=== PATIENT | male | born 1975 | race Caucasian/White ===

== ENCOUNTER 2020-08-22 10:54 | Outpatient (CLI) | payer BC, SELFPAY ==
--- NOTE | ~2020-08-22 | XR_ITS ---
XR chest 2V DATE: 08/22/2020 11:12 INDICATION: Left pleuritic chest pain TECHNIQUE: PA and lateral views COMPARISON: 12/07/2018 portable AP chest FINDINGS: Normal heart size. No hilar or mediastinal enlargement. No pulmonary infiltrate or consol idation, pulmonary vascular congestion, pleural effusion or pneumothorax. Mild scoliosis and degener ative spurring of the thoracic spine. IMPRESSION: No active cardiopulmonary disease Reviewed, dictated and finalized at location A. TURNER
== END 2020-08-22 10:55 | disposition home or self-care (01) ==
LOC: CHSIMG 11:00
PROVIDERS: PCP Family Medicine; Visit Provider Family Medicine
DX: R07.81 Pleurodynia (principal)
CPT/HCPCS: 71046

== ENCOUNTER 2020-10-11 10:43 | Outpatient (CLI) | payer BC, SELFPAY ==
[2020-10-11 11:08] LABS: D Dimer 0.19 mg/L (0.19-0.50)
== END 2020-10-11 10:44 | disposition home or self-care (01) ==
LOC: CHSLAB 10:45
PROVIDERS: PCP Physician Assistant; Visit Provider Physician Assistant
DX: R07.81 Pleurodynia (principal)
CPT/HCPCS: 36415; 85380

== ENCOUNTER 2020-10-22 10:09 | Outpatient (CLI) | payer BC, SELFPAY ==
--- NOTE | 2020-10-22 10:14 | ECHO_ITS ---
Patient Info Name: Osei Almazan Age: 45 years : 1975 Gender: Male Ht: 72 in Wt: 208 lbs BSA: 2.21 m2 HR: 56 bpm BP: 145 / 85 mmHg Technical Quality: Excellent Exam Date: 10/22/2020 10:04 AM Exam Location: [facility] Patient Status: Outpatient Admit Date: 10/22/2020 Staff Ordering Physician: VipulJamar MD Contour Stitcher: Laurel Sales RDCS Attending Provider: VipulJamar MD Exam Type: CA echo doppler color flow Study Info Indications R07.81 - Pleurodynia Complete two-dimensional, color flow and Doppler transthoracic echocardiogram is performed. Strain analysis performed. History/Risk Factors Hypertension: No Dyslipidemia: No Congenital Heart Disease (CHD): No Peripheral Arterial Disease (PAD): No Myocardial Infarction (ID): No Chronic Lung Disease: No Obesity: No Renal Disease: No Coronary Artery Disease (CAD) No Congestive Heart Failure (CHF): No Cardiomyopathy/LV Systolic Dysfunction: No Diabetes Mellitus: No COPD: No Tobacco Use: Never Cerebrovascular Disease: No Family History: Diabetes Mellitus, Coronary Artery Disease Deep Vein Thrombosis (DVT): None Dialysis: None Frailty Scale (CSHA): 1: Very Fit Cardiac Arrest: No Summary 1. Complete two-dimensional, color flow and Doppler transthoracic echocardiogram is performed. 2. Left ventricular chamber dimension is moderately enlarged. 3. Left ventricular systolic function is normal, estimated at 60-65%. 4. The left ventricular diastolic function is normal. 5. E/e' 7 is not elevated. 6. Global longitudinal strain is normal at -17.4%. 7. Left atrial chamber dimension is mildly enlarged. 8. There is mild mitral valve regurgitation. 9. There is trace tricuspid valve regurgitation. 10. No pulmonary hypertension, estimated pulmonary arterial systolic pressure is 30 mmHg. 11. There is trace pulmonic regurgitation. Left Ventricle E/e' 7 is not elevated. Global longitudinal strain is normal at -17.4%. Left ventricular chamber dimension is moderately enlarged. Left ventricular systolic function is normal, estimated at 60-65%. The left ventricular diastolic function is normal. Right Ventricle Right ventricular systolic function is normal with normal TAPSE 1.8 cm. Right ventricular chamber dimension is normal. Left Atria Left atrial chamber dimension is mildly enlarged. Right Atria Right atrial chamber dimension is normal. Aortic Valve The aortic valve is trileaflet. There is no aortic valve stenosis. There is no aortic valve regurgitation. Pulmonic Valve There is trace pulmonic regurgitation. Mitral Valve There is no mitral valve stenosis. There is mild mitral valve regurgitation. Tricuspid Valve There is trace tricuspid valve regurgitation. No pulmonary hypertension, estimated pulmonary arterial systolic pressure is 30 mmHg. Pericardium/Pleural There is no pericardial effusion. Inferior Vena Cava Normal inferior vena cava with >50% collapse upon inspiration consistent with normal right atrial pressure, 5 mmHg. Aorta The aortic root size at the sinus of Valsalva is normal. Left Ventricular Outflow Tract Name Value Normal LVOT 2D
== END 2020-10-22 10:10 | disposition home or self-care (01) ==
LOC: CHSIMG 10:10
PROVIDERS: PCP Physician Assistant; Visit Provider Family Medicine
DX: R07.81 Pleurodynia (principal)
CPT/HCPCS: 93306

== ENCOUNTER 2020-11-18 07:29 | Outpatient (CLI) | payer BC, SELFPAY ==
--- NOTE | 2020-11-18 09:00 | EST_ITS ---
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 History/Risk Factors Hypertension: No Dyslipidemia: No Congenital Heart Disease (CHD): No Peripheral Arterial Disease (PAD): No Myocardial Infarction (PR): No Chronic Lung Disease: No Obesity: No Renal Disease: No Coronary Artery Disease (CAD) No Congestive Heart Failure (CHF): No Cardiomyopathy/LV Systolic Dysfunction: No Diabetes Mellitus: No COPD: No Tobacco Use: Never Cerebrovascular Disease: No Family History: Diabetes Mellitus, Coronary Artery Disease Deep Vein Thrombosis (DVT): None Dialysis: None History/Risk Factors Family History. Frailty Scale (CSHA): 1: Very Fit Cardiac Arrest: No Summary 1. 1. Abnormal Jamar exercise stress test for ischemic ST changes by ECG criteria. 2. 2. Good functional capacity, achieving 14.9 METs of workload. 3. 3. Appropriate HR response to exercise. 4. 4. Appropriate HR recovery at 1 minute post exercise. 5. 5. Nuclear scan to follow and will be reported separately. Please correlate with it. Protocol: Jamar Stress ECG Details Stage: REST Duration (min): 1 min : 23 sec Speed (mph): 0.0 Grade (%): 0 HR (bpm): 55 SBP (mmHg): 133 DBP (mmHg): 83 METS: --- Stage: REST Duration (min): 22 min : 9 sec Speed (mph): 0.0 Grade (%): 0 HR (bpm): 66 SBP (mmHg): 133 DBP (mmHg): 83 METS: --- Stage: STAGE 1 Duration (min): 1 min : 0 sec Speed (mph): 1.7 Grade (%): 10 HR (bpm): 83 SBP (mmHg): 133 DBP (mmHg): 83 METS: --- Stage: STAGE 1 Duration (min): 2 min : 0 sec Speed (mph): 1.7 Grade (%): 10 HR (bpm): 88 SBP (mmHg): 133 DBP (mmHg): 83 METS: --- Stage: STAGE 1 Duration (min): 3 min : 0 sec Speed (mph): 1.7 Grade (%): 10 HR (bpm): 87 SBP (mmHg): 150 DBP (mmHg): 92 METS: --- Stage: STAGE 2 Duration (min): 1 min : 0 sec Speed (mph): 2.5 Grade (%): 12 HR (bpm): 108 SBP (mmHg): 150 DBP (mmHg): 92 METS: --- Stage: STAGE 2 Duration (min): 2 min : 0 sec Speed (mph): 2.5 Grade (%): 12 HR (bpm): 114 SBP (mmHg): 150 DBP (mmHg): 92 METS: --- Stage: STAGE 2 Duration (min): 3 min : 0 sec Speed (mph): 2.5 Grade (%): 12 HR (bpm): 115 SBP (mmHg): 182 DBP (mmHg): 106 METS: --- Stage: STAGE 3 Duration (min): 1 min : 0 sec Speed (mph):
--- NOTE | 2020-11-18 16:44 | WPDCARIOSTRE ---
Nuclear Stress Test INDICATIONS Indications: Chest pain PROCEDURE Procedure Performed: Myocardial Perf Spect-Multi Procedure: Patient underwent a Jamar exercise stress test and at peak exercise was injected with 33.1 mCi of cardiolyte. Multiple tomographic images were obtained. These were of adequate quality. There is evidence of a small size, mild inferior perfusion defect during stress imaging. A separate resting images were performed after patient was injected with 10.7 mCi of cardiolyte. Multiple tomographic images were obtained. These were of adequate quality. There is evidence of a large size, severe inferior perfusion defect during rest imaging. CONCLUSION Conclusion: 1. Myocardial perfusion imaging demonstrating a fix defect in the inferior wall that was worse with rest imaging suggestive of diaphragmatic attenuation artifact. 2. No evidence of reversible ischemia. 3. Left ventriculogram demonstrates EF of 53%. No wall motion abnormalities. 4. TID score is not elevated at 0.79.
== END 2020-11-18 07:30 | disposition home or self-care (01) ==
PROVIDERS: PCP Family Medicine
DX: R07.9 Chest pain, unspecified (principal); R93.1 Abnormal findings on diagnostic imaging of heart and coronary circulation
CPT/HCPCS: 78452; 93017; A9502

== ENCOUNTER 2022-12-09 07:11 | Day surgery (SDC) | payer BC, SELFPAY ==
[2022-10-22 12:49] VITALS: BMI 29.0
--- NOTE | 2022-12-10 07:29 | SUR.PREOP ---
Paper chart exist on patient due to [facility] downtime.
== END 2022-12-09 07:30 | disposition home or self-care (01) ==
LOC: ANHENDO 01-01 14:11
PROVIDERS: PCP Family Medicine; Visit Provider Internal Medicine Gastroenterology
DX: Z12.11 Encounter for screening for malignant neoplasm of colon (principal); Z53.8 Procedure and treatment not carried out for other reasons
CPT/HCPCS: 99199; J7120

== ENCOUNTER 2022-12-23 01:38 | Day surgery (SDC) | payer BC, OTHER, SELFPAY ==
[2022-12-17 10:24] VITALS: BMI 28.8
--- NOTE | 2022-12-17 11:31 | PC.NURSE ---
CALLED ASHLEY IN DR. VASQUEZ OFFICE AND INFORMED HER PATIENT HAD A POSITIVE COLOGUARD IN 2022
[2022-12-23 06:47] VITALS: BP 124/90; PULSE 84; RESP 18; TEMP 36.1; O2SAT 98
[2022-12-23] MEDS: LACTATED RINGERS 1,000 ML 150 ML IV CONT (06:57)
--- NOTE | 2022-12-23 07:18 | WPDANESEPPF ---
Anes - Initial Pre Proc Eval Procedure: Operation Date: 12/23/22 08:00 Proposed Procedures p Colonoscopy - Boy Shell MD Date/Time: 12/23/22 07:18 Surgeon: Boy Shell MD Pre Op Diagnosis: other fecal abnormalities Patient Data Age: 47 Gender: M Height: 1.83 m Weight: 95.6 kg Last Vital Signs Temp 97 F L 12/23/22 06:47 Pulse 84 12/23/22 06:47 Resp 18 12/23/22 06:47 BP 124/90 12/23/22 06:47 Pulse Ox 98 12/23/22 06:47 O2 Del Method Room Air 12/23/22 06:47 Allergies Allergy/AdvReac Type Severity Reaction Status Date / Time No Known Allergies Allergy Verified 12/23/22 06:46 Home Medications Medication Instructions Recorded Confirmed Type Adults Multivitamin 1 tab-cap PO DAILY 10/22/22 11/30/22 History Patient hx anesthesia problems: none Family hx anesthesia problems: none Results Review: All pre-operative results and documents have been reviewed as part of the pre-operative evaluation. [facility] Past Medical History Medical History (Updated 09/17/22 @ 15:08 by Boy Shell MD) Genital warts Gout Hx of hyperlipidemia LFT elevation Positive colorectal cancer screening using Cologuard test Social History Social History Smoking status: Never smoker Alcohol intake: current Alcohol use details: on occasion Substance use: never Substance use type: does not use Living arrangements: with family Spiritual care concerns: No Anes - Eval Final PreProcedure Day of Procedure 12/23/22 07:18 Patient weight: normal Heart: regular rate and rhythm Lungs: clear to auscultation Airway: Mallampati scale class II Neurological: alert and oriented Last oral intake: >/= 8 hours ASA classification: II Emergent: no Anesthetic plan: proceed Anesthesia type and monitoring: general GIVS and standard monitoring Results Review: All pre-operative results and documents have been reviewed as part of the pre-operative evaluation. Informed Consent: The patient's anesthetic plan and its attendant risks and benefits were discussed with the patient/family/POA. Questions were solicited and answers provided to the satisfaction of the patient/family/POA.
--- NOTE | 2022-12-23 08:07 | PM.HPGS ---
History of Present Illness History of Present Illness Consent: Risks, benefits, and alternatives have been discussed and questions answered. Patient agrees to proceed with procedure. Chief complaint: other fecal abnormalities Narrative: Osei Almazan is a 47 year old male with cologuard +, never had colonoscopy Review of Systems Constitutional: Constitutional: Denies headache(s) and Denies weakness Eyes: Eyes: Denies blurry vision ENT: Reports Normal hearing present, Denies headache(s) and Denies neck pain Cardiovascular: Cardiovascular: Denies chest pain and Denies dyspnea Respiratory: Respiratory: Denies dyspnea Gastrointestinal: Gastrointestinal: Reports no additional gastrointestinal complaints Genitourinary: Genitourinary: Denies dysuria Musculoskeletal: Musculoskeletal: Denies neck pain Integumentary/Breasts: Skin/Breast: Denies dry skin Neurologic: Reports Normal hearing present, Denies headache(s) and Denies weakness Psychiatric: Psychiatric: Denies anxiety Endocrine: Endocrine: Denies change in body appearance Hematologic/Lymphatic: Hematologic/Lymphatic: Denies easy bleeding Allergic/Immunologic: Allergic/Immunologic: Denies urticaria PMFSH Past Medical History Medical History (Updated 09/17/22 @ 15:08 by Boy Shell MD) Genital warts Gout Hx of hyperlipidemia LFT elevation Positive colorectal cancer screening using Cologuard test Social History Social History Smoking status: Never smoker Alcohol intake: current Alcohol use details: on occasion Substance use: never Substance use type: does not use Living arrangements: with family Spiritual care concerns: No Meds Home Medications and Allergies Home Medications Medication Instructions Recorded Confirmed Type Adults Multivitamin 1 tab-cap PO DAILY 10/22/22 11/30/22 History Allergies Allergy/AdvReac Type Severity Reaction Status Date / Time No Known Allergies Allergy Verified 12/23/22 06:46 Vital Signs Vital Signs - 24 hr 12/23/22 06:47 Temperature 97 F L Pulse Rate 84 Respiratory Rate 18 Blood Pressure 124/90 Pulse Oximetry 98 Oxygen Delivery Room Air Exam Const: General: comfortable and no acute distress HENMT: Face/Nose/Sinus: Normal nares present Eyes: General: appearance normal, both eyes and all related structures Neck: Neck: no JVD Resp: Auscultation: clear to auscultation bilaterally Cardio: Rate: regular rate Rhythm: regular rhythm GI: Inspection: non-distended GI Palp: Yes Soft to palpation Skin: General skin exam: normal color Neuro: General: gait normal Speech: normal speech Extrem: General: normal to inspection Psych: Mental Status: mental status grossly normal Assessment and Plan Assessment and plan (1) Positive colorectal cancer screening using Cologuard test: Code(s): R19.5 - Other fecal abnormalities Status: Acute Assessment and Plan: colonoscopy
[2022-12-23 08:31] VITALS: BP 117/81; PULSE 71; RESP 16; O2SAT 98
[2022-12-23 08:41] VITALS: BP 118/78; PULSE 60; RESP 15; O2SAT 98
[2022-12-23 08:51] VITALS: BP 122/84; PULSE 69; RESP 16; O2SAT 100
== END 2022-12-23 09:00 | disposition home or self-care (01) ==
PROVIDERS: PCP Family Medicine; Visit Provider Internal Medicine Gastroenterology
PROC: 0DJD8ZZ Inspection of Lower Intestinal Tract, Via Natural or Artificial Opening Endoscopic (ICD-10-PCS; CPT 45378; principal; 2022-12-23 08:00)
DX: R19.5 Other fecal abnormalities (principal); K64.8 Other hemorrhoids
CPT/HCPCS: 45378; J2704; J7120

== ENCOUNTER 2022-12-29 20:33 | Emergency (ER) | payer BC, OTHER, SELFPAY ==
[2022-12-29 20:35] VITALS: BP 157/91; PULSE 107; RESP 20; TEMP 36.8; O2SAT 96
[2022-12-29 20:37] VITALS: PULSE 96; RESP 22; O2SAT 96
[2022-12-29] MEDS: EPINEPHrine HCL INJ 1 MG/ML AMPUL 0.3 MG SUB-Q (20:43)
[2022-12-29 20:49] VITALS: BP 129/78; PULSE 81; RESP 20; O2SAT 94
--- NOTE | 2022-12-29 20:50 | ED.ALLEREA ---
HPI - Allergic Reaction General Chief complaint: Allergic Reaction Stated complaint: SOB/Allergic Reaction Source: patient and family Mode of arrival: ambulatory Limitations: no limitations History of Present Illness complaint: allergic reaction and facial swelling Onset (ago): minute(s) Exposure: cleaning product exposure Known history of allergy to: This is a 47-year-old male that presents with family that had allergic reaction after he used some sanitary wipes to his facial area causing him to have some chest tightness and a facial rash, currently no nausea vomiting does have some chest tightness with some some shortness of breath no audible wheezing, his O2 sats are 94%, no fever chills. Family did use extensive water to wipe away the the affects of the wet wipes. No abdominal pain no nausea vomiting no fever chills. Symptoms: facial swelling, difficulty swallowing and difficulty breathing Related Data Home Medications Medication Instructions Recorded Confirmed Adults Multivitamin 1 tab-cap PO DAILY 10/22/22 12/29/22 Allergies Allergy/AdvReac Type Severity Reaction Status Date / Time No Known Allergies Allergy Verified 12/29/22 20:38 Review of Systems Review of Systems: All systems reviewed & are unremarkable except as noted in HPI and below PMFSH Past Medical History Medical History Genital warts Gout Hx of hyperlipidemia LFT elevation Positive colorectal cancer screening using Cologuard test Social History Social History Smoking status: Never smoker Alcohol intake: current Alcohol use details: on occasion Substance use: never Substance use type: does not use Living arrangements: with family Spiritual care concerns: No Exam Const: General: healthy appearing Nutritional Appearance: well nourished Orientation/consciousness: patient oriented x3 Limitations: no limitations HENMT: Head: normal to inspection Eyes: Conjunctivae: conjunctivae normal EOM: EOMs intact bilaterally Neck: Neck: normal visual inspection Chest: Chest palpation & inspection: normal inspection of the chest Resp: Effort & Inspection: normal respiratory effort Auscultation: diminished lung sounds Cardio: Rate: regular rate Rhythm: regular rhythm GI: GI Palp: Yes Soft to palpation Auscultation: normal bowel sounds Skin: Wounds: wounds noted Neuro: General: patient oriented x3 Cranial nerves: Yes Nystagmus not present Extrem: General: normal to inspection Psych: Mental Status: mental status grossly normal Course Course Emergency Course: Patient received some 0 8 3% IM epinephrine and symptoms have improved markedly others lot less chest tightness, there is no nausea or vomiting no audible wheezing his lungs are clear after reassessment. O2 sats are improved as well up to 96 97% on room air and will give a dose of 80mg IM Depo-Medrol. At discharge will send to his pharmacy EpiPen and p.o. steroids. Vital Signs Vital signs: Vital Signs Temperature 36.8 C 12/29/22 20:35 Pulse Rate 107 H 12/29/22 20:35 Respiratory Rate 20 12/29/22 20:35 Blood Pressure 157/91 H 12/29/22 20:35 Pulse Oximetry 96 12/29/22 20:35 Oxygen Delivery Room Air 12/29/22 20:35 Temperature 36.8 C 12/29/22 20:35 Pulse Rate 81 12/29/22 20:49 Respiratory Rate 20 12/29/22 20:49 Blood Pressure 129/78 12/29/22 20:49 Pulse Oximetry 94 12/29/22 20:49 Oxygen Delivery Room Air 12/29/22 20:35 Critical Care Time Critical Care Time Critical Care Time: No Discharge Plan Discharge Clinical Impression: Allergic reaction Qualifiers: Encounter type: initial encounter Qualified Code(s): T78.40XA - Allergy, unspecified, initial encounter Patient Disposition: Home, Self-Care Condition: Stable Instructions: Antibiotic Form, General Allergic Reaction (ED) Additio
[2022-12-29] MEDS: methylPREDNISolone ACETATE 40 MG/ML VIAL 80 MG IM (21:01)
[2022-12-29 21:23] VITALS: BP 140/98; PULSE 74; RESP 18; O2SAT 96
== END 2022-12-29 21:24 | disposition home or self-care (01) ==
PROVIDERS: Emergency Provider Emergency Medicine; PCP Family Medicine
DX: T78.40XA Allergy, unspecified, initial encounter (principal); E78.5 Hyperlipidemia, unspecified
CPT/HCPCS: 96372; 99284; J0171; J1030

== ENCOUNTER 2023-02-11 12:40 | Outpatient (CLI) | payer BC, OTHER, SELFPAY ==
--- NOTE | ~2023-02-11 | MR_ITS ---
EXAMINATION: MR hand RT wo con DATE: 02/11/2023 13:31 INDICATION: Localized swelling, mass or lump at the right hand. TECHNIQUE: Magnetic resonance imaging (MRI) of the right hand was performed without intravenous contr ast. Portions of the wrist and proximal carpal row and distal tips of the second fourth distal phalan ges are excluded from the [id number]. Sequences included axial, sagittal and coronal T1-weighted F SE and T2-weighted FS FSE, axial T1-weighted FS FSE and axial fluid sensitive FSE STIR. COMPARISON: None FINDINGS: Bone alignment is normal with normal marrow signal throughout. No fracture or pathologic marrow repla cing process. Joint spaces are normal. No erosions or joint effusions. There is a 12 x 8 x 2 mm flat lenticular low signal intensity lesion located palmar to the neck of the fourth metacarpal which appe ars to arise from the palmar aponeurosis most consistent with a palmar fibroma. This immediately unde rlies the marker indicating the lesion of concern. No other nodules identified. The deeper flexor ten dons as well as extensor tendons of the hand appear normal with no tenosynovitis. The collateral liga ment complex at the metacarpophalangeal and interphalangeal joints are normal. IMPRESSION: 1. The lesion of concern corresponds to 4 x 8 x 2 mm lenticular region of focal thickening of the pal mar aponeurosis most consistent with a palmar fibroma. Reviewed, dictated and finalized at location A. IMPRESSION: 1. The lesion of concern corresponds to 4 x 8 x 2 mm lenticular region of focal thickening of the palmar aponeurosis most consistent with a palmar fibroma.
== END 2023-02-11 12:41 | disposition home or self-care (01) ==
PROVIDERS: PCP Family Medicine; Visit Provider Orthopaedic Surgery
DX: R22.31 Localized swelling, mass and lump, right upper limb (principal)
CPT/HCPCS: 73218

== ENCOUNTER 2023-07-14 12:22 | Outpatient (CLI) | payer BC, OTHER, SELFPAY ==
--- NOTE | ~2023-07-14 | CT_ITS ---
EXAMINATION: CT abdomen pelvis wo con DATE: 07/14/2023 12:49 INDICATION: Left kidney/flank pain for 2 weeks TECHNIQUE: Computed tomography (CT) of the abdomen and pelvis was performed without intravenous contr ast. Automated exposure control and iterative reconstruction technique were employed. Exam dose: 816 .12 mGy-cm total exam DLP. COMPARISON: 12/08/2018 abdominal ultrasound FINDINGS: The lung bases are clear of infiltrate or consolidation. Normal heart size. No pericardial or pleural effusion. The liver, gallbladder, bile ducts, spleen, pancreas, pancreatic duct, and adrenal glands and kidneys are unremarkable on this limited noncontrast examination. Bile duct or pancreatic duct dilatation. No urinary tract calculus or hydroureteronephrosis. Normal caliber of the abdominal aorta. No intraperitoneal or retroperitoneal or pelvic mass lesion or adenopathy or ascites. The urinary bladder and prostate gland are unremarkable. Small fat-containing left inguinal hernia. Normal appendix. There is a prominent amount of fecal material in the rectum and colon, particularly sigmoid colon. No bowel obstruction, bowel wall thickening, pneumatosis or intraperitoneal free air is detected. No suspicious osteolytic or osteoblastic lesions are noted. IMPRESSION: No urinary tract calculus or hydroureteronephrosis Reviewed, dictated and finalized at Location A. Reviewed, dictated and finalized at location B. 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
== END 2023-07-14 12:23 | disposition home or self-care (01) ==
LOC: CHSIMG 12:24
PROVIDERS: PCP Family Medicine; Visit Provider Family Medicine
DX: R10.9 Unspecified abdominal pain (principal)
CPT/HCPCS: 74176

== ENCOUNTER 2023-07-26 12:00 | Outpatient (CLI) | payer BC, OTHER, SELFPAY ==
--- NOTE | ~2023-07-26 | NM_ITS ---
EXAMINATION: NM hepatobiliary w pharm DATE: 07/26/2023 14:31 INDICATION: Common bile duct dilatation. COMPARISON: CT abdomen and pelvis 07/14/23 TECHNIQUE: 6.3 mCi Tc-99m mebrofenin (Choletec) was administered intravenously. Scintigraphic images of the abdomen were obtained for one hour. Then, 2 mcg sincalide (Kinevac) IV was administered, and imaging was continued for 30 minutes. FINDINGS: There is normal clearance of radiotracer from the blood pool. There is homogeneous tracer u ptake by the liver. Activity progresses to the bowel and gallbladder. Gallbladder ejection fraction (GBEF) was 80%. Note that most patients with gallbladder dysfunction have GBEF < 35%, which overlaps with the broad normal range of 10-90%. IMPRESSION: 1. Normal hepatobiliary scintigraphy. Reviewed, dictated and finalized at location A. 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
== END 2023-07-26 12:01 | disposition home or self-care (01) ==
LOC: CHSIMG 12:03
PROVIDERS: PCP Family Medicine; Visit Provider Family Medicine
DX: K83.8 Other specified diseases of biliary tract (principal)
CPT/HCPCS: 78227; A9537; J2805

== ENCOUNTER 2023-09-23 12:59 | Outpatient (CLI) | payer BC, OTHER, SELFPAY ==
--- NOTE | ~2023-09-23 | US_ITS ---
US scrotum doppler INDICATION: Left testicular pain for 2-3 months TECHNIQUE: Testicular sonogram utilizing grayscale and color Doppler FINDINGS: The testes are normal in size and appearance. There are left testicular calcifications, lar gest measuring 4 mm. No focal masses are seen. The right testes measures 4.6 x 2.4 x 3.2 cm centimete rs, and the left testis measures 4.4 x 2.4 x 2.9 cm cm. There is normal vascular flow to both testes. There is a left epididymal cyst measuring 6 mm. There is no varicocele or hydrocele. IMPRESSION: 1. Left epididymal cyst measuring 6 mm. 2: Left testicular calcifications, likely benign. These are likely sequela of prior infection or trau ma. Reviewed, dictated and finalized at location L. IMPRESSION: 1. Left epididymal cyst measuring 6 mm. 2: Left testicular calcifications, likely benign. These are likely sequela of p rior infection or trauma.
== END 2023-09-23 13:00 | disposition home or self-care (01) ==
PROVIDERS: PCP Physician Assistant; Visit Provider Physician Assistant
DX: N50.3 Cyst of epididymis (principal); R93.812 Abnormal radiologic findings on diagnostic imaging of left testicle
CPT/HCPCS: 76870; 93976

== ENCOUNTER 2024-03-02 10:10 | Emergency (ER) | payer OTHER, BC, SELFPAY ==
[2024-03-02] VITALS (12 sets, daily range): BP systolic 127–155; BP diastolic 67–93; PULSE 65–80; RESP 12–19; TEMP 36.4; O2SAT 94–99
--- NOTE | ~2024-03-02 | XR_ITS ---
Portable chest x-ray Comparison: 08/22/2020 Clinical History: Dyspnea Findings: Lungs are clear, without focal consolidation or pleural effusion. Cardiomediastinal silho uette is stable. Bones and soft tissues are unremarkable. Impression: Clear lungs. Reviewed, dictated and finalized at location . Impression: Clear lungs.
--- NOTE | 2024-03-02 10:28 | ED.ALLEREA ---
HPI - Allergic Reaction General Chief complaint: Allergic Reaction Stated complaint: allergic reaction Time Seen by Provider: 03/02/24 10:15 Source: patient Mode of arrival: EMS Limitations: no limitations History of Present Illness HPI narrative: This is a 48-year-old male who presents to the ED via EMS for chief complaint a possible allergic reaction. States he was working today with ground warranted came up and stung him through his glove. States that he had an immediate reaction where he felt flushed, had shortness of breath. He is unsure of a rash. They called EMS who gave epi x2 as well as Decadron and Benadryl. States that the difficulties breathing seemed to have subsided. He feels generally improved since arriving to ED but still feels tight in the chest. Also reporting some headache now. Related Data Home Medications Medication Instructions Recorded Confirmed Adults Multivitamin 1 tab-cap PO DAILY 10/22/22 02/03/23 Allergies Allergy/AdvReac Type Severity Reaction Status Date / Time No Known Allergies Allergy Verified 02/03/23 13:49 Review of Systems Review of Systems: All systems as dictated in HPI [facility] Past Medical History Medical History Genital warts Gout Hx of hyperlipidemia LFT elevation Positive colorectal cancer screening using Cologuard test Family History Family History (Updated 02/10/23 @ 14:56 by Jonelle Camacho) Unknown Hypertension Heart disease Colon cancer HLD (hyperlipidemia) Social History Social History (Updated 02/16/23 @ 11:49 by Allison Rosales MA) Smoking status: Never smoker Alcohol intake: current Alcohol use details: on occasion Substance use: never Substance use type: does not use Lack of Transportation: No Lack of Food: Never True Current Housing: I Have Housing Concerned About Future Housing: No Difficulty Paying Gas/Electric Bills: No Difficulty Paying for Meds: No Currently Unemployed: No Education: High School Diploma/GED Difficulty w/ Childcare or Family Care: No Living arrangements: with family Occupation/Education: occupation 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 HEAD: Normocephalic, atraumatic. EYES: PERRLA and EOMI. ENT: Nares clear, no rhinorrhea or epistaxis. Mucous membranes moist. Oropharynx without tonsillar hypertrophy exudate or other lesions. NECK: Supple. No adenopathy or masses. CHEST: No respiratory distress. Clear to auscultation. No wheezes rales or rhonchi HEART: Regular rate and rhythm. No murmur heard. Normal peripheral pulses. ABDOMEN: Soft, nontender, nondistended, normal active bowel sounds. MSK: Normal range of motion. No edema. SKIN: Warm, dry, no rash. NEURO: Alert and oriented x4. No focal deficits. PSYCH: Normal mood and affect. Course Vital Signs Vital signs: Vital Signs Temperature 97.6 F 03/02/24 10:08 Pulse Rate 77 03/02/24 10:08 Respiratory Rate 16 03/02/24 10:08 Blood Pressure 155/93 H 03/02/24 10:08 Pulse Oximetry 97 03/02/24 10:08 Oxygen Delivery Room Air 03/02/24 10:08 Temperature 97.6 F 03/02/24 10:08 Pulse Rate 80 03/02/24 14:01 Respiratory Rate 19 03/02/24 14:01 Blood Pressure 138/81 03/02/24 14:01 Pulse Oximetry 96 03/02/24 14:01 Oxygen Delivery Room Air 03/02/24 10:14 MDM - Allergic Reaction MDM Narrative Medical decision making narrative: This is a 40-year-old male who presents to the ED after possible anaphylactic reaction. He was given IM epi x2, Decadron and Benadryl per EMS. Vitals on arrival only show elevated blood pressure but otherwise normal. He appears a little flushed on arrival but exam is otherwise benign. Still had some subjective tightness in his chest of DuoNeb was given as well
--- NOTE | 2024-03-02 10:49 | ECG_ITS ---
Test Date: 2024-03-02 11:32:43 Measurements Intervals [place] Rate: 73 P: 22 MI: 138 QRS: 24 QRSD: 106 T: 42 QT: 390 QTc: 431 Interpretive Statements SINUS RHYTHM NONSPECIFIC T-WAVE ABNORMALITY- INFERIOR LEADS BASELINE ARTIFACT- I, II, III, AVR, AVL, V1-V6 BORDERLINE ECG No previous ECG available for comparison Electronically Signed On 03-02-2024 11:36:46 CDT by Shad Watson D.O.
[2024-03-02] MEDS: IPRATROPIUM 0.5 MG/ALBUTEROL SULFATE 2.5 MG AMPUL.NEB 3 ML INHALATION (10:51)
[2024-03-02] MEDS: KETOROLAC 15 MG/ML VIAL (*BKC) IV PUSH (10:55)
[2024-03-02] MEDS: SODIUM CHLORIDE 0.9% IV 1,000 ML 999 ML IV CONT (10:55)
[2024-03-02 11:40] LABS: Basophils Percent Auto 0.1 % (0.2-1.2); Eosinophils Percent Auto 0.1 % (0-4.4); Hematocrit 43.8 % (42.0-52.0); Hemoglobin 14.9 g/dL (14.0-18.0); Immature Granulocyte Absolute 0.06 K/mm3 (0.00-0.031); Immature Granulocyte Percent A 0.4 % (0-0.5); Lymphocytes Absolute Auto 0.87 K/mm3 (0.9-3.2); Lymphocytes Percent Auto 5.7 % (18.3-44.2); Mean Corpuscular Hemoglobin 29.9 pg (26-34); Mean Corpuscular Volume 87.8 fl (80-100); Mean Platelet Volume 10.1 fl (7.4-10.4); Monocytes Absolute Auto 0.9 K/mm3 (0.1-0.6); Monocytes Percent Auto 5.8 % (2.6-8.5); Neutrophils Absolute Auto 13.4 K/mm3 (1.3-6.7); Neutrophils Percent Auto 87.9 % (45.5-73.1); Platelet Count Result 254 k/mm3 (150-375); Red Blood Count 4.99 M/mm3 (4.6-6.20); White Blood Count 15.2 K/mm3 (4.5-10.0)
[2024-03-02 12:13] LABS: Alanine Aminotransferase 32 U/L (6-50); Alkaline Phosphatase 59 U/L (38-126); Anion Gap 9 mmol/L (4-12); Aspartate Amino Transferase 35 U/L (17-59); Bilirubin,Total 0.9 mg/dL (0.2-1.3); Blood Urea Nitrogen 33 mg/dL (9-20); Calcium 8.8 mg/dL (8.4-10.2); Carbon Dioxide 24 mmol/L (22-30); Chloride 107 mmol/L (98-107); Estimated CRCL calculation 90 ml/min; Estimated Glomerular Filt Rate > 60; Glucose 131 mg/dL (65-110); Sodium 140 mmol/L (137-145)
== END 2024-03-02 14:12 | disposition home or self-care (01) ==
PROVIDERS: Emergency Provider Physician Assistant; PCP Physician Assistant
DX: T78.40XA Allergy, unspecified, initial encounter (principal); X58.XXXA Exposure to other specified factors, initial encounter
CPT/HCPCS: 36415; 71045; 80053; 85025; 93005; 94640; 96361; 96374; 99284; J1885; J7030

== ENCOUNTER 2024-08-08 16:06 | Outpatient (CLI) | payer OTHER, SELFPAY ==
--- NOTE | ~2024-08-08 | MR_ITS ---
MRI of the right ankle Clinical history: Tendinopathy Technique: Coronal proton-density and proton-density fat-sat images, axial proton-density and proton- density fat-sat images, and sagittal proton-density and proton-density fat-sat images were acquired. Findings: Syndesmotic ligaments are intact. Anterior and posterior talofibular ligaments, and calcane ofibular ligament are intact. Deltoid ligament is intact. Medial flexor tendons, peroneal tendons, anterior extensor tendons are intact. There is minimal tendi nosis of the distal Achilles tendon insertion. There is no osteochondral lesion of the talar dome. Bone marrow signals and joint spaces are intact. No significant joint effusion. Plantar fascia intact with small plantar calcaneal spur. No soft tissu e mass or fluid collection seen otherwise. Impression: Mild tendinosis of the distal Achilles. Small plantar calcaneal spur. Reviewed, dictated and finalized at [facility]. ING PROGRAM COORDINATOR Impression: Mild tendinosis of the distal Achilles. Small plantar calcaneal spur.
--- OUTSIDE RECORDS SUMMARY | 2024-08-08 16:26 | XMS_ITS | Clinical Summary ---
Author Organization [facility] Address [facility] [place] [address] Care Team Providers Care Oven Baker Name Role Phone Jamar Matthew MD Primary Care Provider +- [phone] Radha Prado MD Unavailable Allergies No known active allergies Medications ibuprofen 200 MG tablet Take 1 tablet (200 mg total) by mouth every 6 (six) hours as needed for Pain. Active EPINEPHrine 0.3 MG/0.3ML injection Inject 0.3 mLs (0.3 mg total) into the muscle as needed. 12/30/2022 Active colchicine 0.6 MG tablet 03/19/2024 Active methylPREDNISolo RALPH roberts, (MEDROL DOSEPAK) 4 MG tablet 03/19/2024 Active traMADol (ULTRAM) 50 MG tablet 03/19/2024 Active Multiple Vitamin (MULTIVITAMIN ADULT OR) Active Active Problems Problem Noted Date Diagnosed Date Chest pain 11/03/2020 Bradycardia 11/03/2020 Abnormal echocardiogram 11/03/2020 Family History Medical History Relation Comments Open Heart Father Cancer Maternal Grandfather Hypertension Paternal Uncle Open Heart Paternal Uncle Relation Status Comments Father Maternal Grandfather Paternal Uncle Social History Tobacco Use Types Packs/Day Years Used Date Smoking Tobacco: Never Smokeless Tobacco: Never Alcohol Use Standard Drinks/Week Comments Yes 0 (1 standard drink = 0.6 oz pur e alcohol) 3 TIMES A WEEK AUDIT-C Answer Date Recorded Frequency of Alcohol Consumption Never 12/10/2018 Average Number of Drinks Not on file 019 Frequency of Binge Drinking Not on file 11/26 Sex and Gender Information Value Date Recorded Sex Assigned at Not on file Legal Sex Male 9:22 PM CDT Gender Identity Not on file Sexual Orientation Not on file 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 Not on file Not on file Not on file Last Filed Vital Signs Vital Sign Reading Time Taken Comments Blood Pressure 118/68 03/20/2024 2:11 PM CDT Pulse 74 03/20/2024 2:11 PM CDT Temperature 35.9 C (96.7 F) 12/10/2018 2:01 PM CDT Respiratory Rate 20 01/19/2023 12:0 8 PM CDT Oxygen Saturation 98% 03/20/2024 2:11 PM CDT Inhaled Oxygen Concentration - - Weight 100.8 kg (222 lb 3.2 oz) 03/20/2024 2:11 PM CDT Height 182.9 cm (6') 03/20/2024 2:11 PM CDT Body Mass Index 30.14 03/20/2024 2:11 PM CDT Plan of Treatment Upcoming Encounters Date Type Department Care Team (Late st Contact Info) Description 01/03/2025 3:00 PM CDT Appointment [facility] Ultrasound [address] [place] [address] Conor Cheng MD [facility], [address] [place] [phone] 03/26/2025 1:45 PM CDT Office Visit [place] [facility] [place] [address] Conor Cheng MD [facility], [address] [place] [phone] Health Maintenance Due Date Last Done Comments Colorectal Cancer Screening Colonoscopy (10 Years) 1975 Annual Physical 1978 Pneumococcal Vaccine: Pediat rics (0 to 5 Years) and At-Risk Patients (6 to 64 Years) (1 of 2 - PCV) 1981 Hepatitis C 1993 DTaP, Tdap and Td Vaccines ( 1 - Tdap) 1994 Hepatitis B Vaccines (1 of 3 - 19+ 3-dose series) 1994 COVID-19 Vaccine (2023-2 5 season) 2024 Influenza Adult (#1) 2024 Meningococcal B Vaccine Aged Out No l onger eligible based on patient's age to complete this topic Meningococcal Vaccine Aged Out No carlos massiel eligible based on patient's age to complete this topic RSV Immunizations Under 20 Months Aged Out No longer eligible based on patient's age to complete this topic Insurance [employer] Care Teams Oven Baker Relationship Specialty Start Date End Date Jamar Matthew MD [address] [place] [phone] PCP - General FAMILY PRACTICE 10/31/20 Radha Praod MD [address] [place] [address] Consulting Physician CARDIOVASCULAR DISEASE 11/13/21
== END 2024-08-08 16:07 | disposition home or self-care (01) ==
PROVIDERS: PCP Physician Assistant; Visit Provider Podiatrist Foot & Ankle Surgery
DX: M76.61 Achilles tendinitis, right leg (principal); M77.31 Calcaneal spur, right foot
CPT/HCPCS: 73721

== ENCOUNTER 2024-12-29 09:57 | Emergency (ER) | payer OTHER, SELFPAY ==
[2024-12-29 10:04] VITALS: BP 143/73; PULSE 62; RESP 18; TEMP 36.4; O2SAT 98
--- NOTE | 2024-12-29 12:18 | ED_ITS ---
HPI - Skin/Abscess/Foreign Bdy General Chief complaint: Skin/Abscess/Foreign Body Stated complaint: Rash Time Seen by Provider: 12/29/24 10:10 Source: patient and RN notes reviewed Mode of arrival: ambulatory Limitations: no limitations History of Present Illness HPI narrative: 49-year-old male presents Express Care complaining of rash since yesterday. 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 Patient since shower yesterday noticed a rash in his arms that was itchy. Since then the rash has spread throughout his entire body the sites face and he believes he might have been in contact with poison lynsey. Patient states he is very sensitive the poison lynsey. Patient was recently on steroids last month for similar rashes that it fully resolved. Patient has not tried anything [id number] help with symptoms. Patient denies any wheezing, difficulty breathing, swelling to the face, throat, or any other symptoms. Related Data Home Medications ?Medication ?Instructions ?Recorded ?Confirmed ?Last Taken ?Type Adults Multivitamin 1 tab-cap PO DAILY 10/22/22 02/03/23 Unknown History Allergies Allergy/AdvReac Type Severity Reaction Status Date / Time No Known Allergies Allergy Verified 12/29/24 10:24 Review of Systems Review of Systems: CONSTITUTIONAL: Denies fever, chills, or sweats. EYES: Denies visual changes, redness, or discharge. ENT: Denies rhinorrhea, congestion, sore throat, or otalgia. CARDIOVASCULAR: Denies chest pain, palpitations, or edema. RESPIRATORY: Denies cough, wheezing, or dyspnea. GASTROINTESTINAL: Denies abdominal pain, nausea, vomiting, or diarrhea. GENITOURINARY: Denies dysuria or hematuria. SKIN: Positive for rash and itching. MUSCULOSKELETAL: Denies back pain, joint pain, or myalgia. NEUROLOGIC: Denies headache, numbness, or weakness. PSYCHIATRIC: Denies anxiety or depression. All other systems reviewed are negative, except as documented in HPI. [facility] Past Medical History Medical History Positive colorectal cancer screening using Cologuard test Genital warts LFT elevation Gout Hx of hyperlipidemia Family History Family History Unknown Hypertension Heart disease Colon cancer HLD (hyperlipidemia) Social History Social History Smoking status: Never smoker Alcohol intake: current Alcohol use details: on occasion Substance use: never Substance use type: does not use Lack of Transportation: No Lack of Food: Never True Current Housing: I Have Housing Concerned About Future Housing: No Difficulty Paying Gas/Electric Bills: No Difficulty Paying for Meds: No Currently Unemployed: No Education: High School Diploma/GED Difficulty w/ Childcare or Family Care: No Living arrangements: with family Occupation/Education: occupation 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 There is no relevant family history pertinent to the patient complaint. Exam Narrative: GENERAL: This is a well-nourished, well-developed adult, in no apparent distress. They are non ill-appearing, nontoxic appearing. HEAD: normocephalic, atraumatic. EYES: Sclera clear/white. Conjunctiva normal. Vision is grossly intact. Extraocular movements intact EARS: External ears normal, Hearing grossly intact. NOSE: External nose normal THROAT: Mucous membranes moist, NECK: Neck supple, CARDIOVASCULAR: Regular rate and rhythm RESPIRATORY: Respiratory rate normal, respiratory effort nonlabored, no respiratory distress SKIN: Generalized: Pruritic macular papular rash scattered throughout the jay ent's arms, legs, and trunk. Rash in the face. No exudate, no area of fluctuance, no induration. Rash is nontender. NEURO: awake, alert, and oriented to person, place and time. There were no obvious focal neurologic abnormalities. EXTREMITIES: No joint tenderness, effusion, or edema noted. BACK: Nontender without deformity. No CVA tenderness. Course Course Emergency Course: Portions of this record may have been created with voice recognition software Level of Care: Express Care Visit Vital Signs Vital signs: Vital Signs Temperature 97.5 F L 12/29/24 10:04 Pulse Rate 62 12/29/24 10:04 Respiratory Rate 18 12/29/24 10:04 Blood Pressure 143/73 H 12/29/24 10:04 Pulse Oximetry 98 12/29/24 10:04 Oxygen Delivery Room Air 12/29/24 10:04 Temperature 97.5 F L 12/29/24 10:04 Pulse Rate 62 12/29/24 10:04 Respiratory Rate 18 12/29/24 10:04 Blood Pressure 143/73 H 12/29/24 10:04 Pulse Oximetry 98 12/29/24 10:04 Oxygen Delivery Room Air 12/29/24 10:04 Reviewed MDM - Skin/Abscess/Foreign Bdy MDM Narrative Medical decision making narrative: Rash is likely consistent with the beginning stages of a poison lynsey rash. Patient recently on prednisone for similar rash that was just in his arm he states. Patient said the rash fully resolved. Patient does not believe it is rebound from a previous poison lynsey. Will prescribe a prednisone taper given full body rash. Discussed physical exam findings. Advised supportive measures and signs/symptoms to go to the ER. Pt is appropriate for outpt treatment and f/u. Differential Diagnosis Differential diagnosis: Likely viral exanthem, cellulitis, eczema, contact dermatitis and other (Poison lynsey) Critical Care Time Critical Care Time Critical Care Time: No Discharge Plan Discharge Clinical Impression: Contact dermatitis Qualifiers: Contact dermatitis type: unspecified Contact dermatitis trigger: unspecified trigger Qualified Code(s): L25.9 - Unspecified contact dermatitis, unspecified cause Patient Disposition: Home Condition: Stable Instructions: Poison Lynsey (ED) Additional Instructions: Take the prednisone as directed. Take it in the morning and take it with food. You may use oevo-hkl-[id number] Tecnu soap as directed on the bottle to help remove the oils from poison lynsey off your skin. You may use calamine lotion, camphor, hydrocortisone cream Benadryl cream as needed for itchiness symptoms. You may also take Zyrtec or Claritin as needed for allergy ear itchiness symptoms. Follow-up PCP in 3-5 days. If you develop any worsening redness, swelling, discharge, fevers, breathing problems, or any other concerns please go to the ER immediately. Patient Language: Khmer Prescriptions: New prednisone 10 mg tablet See Taper PO DAILY Qty: 42 0RF Taper: Prednisone Taper from 60 mg;12 days 60 mg DAILY for 2 Days and 0 Hour 50 mg DAILY for 2 Days and 0 Hour 40 mg DAILY for 2 Days and 0 Hour 30 mg DAILY for 2 Days and 0 Hour 20 mg DAILY for 2 Days and 0 Hour 10 mg DAILY for 2 Days and 0 Hour No Action epinephrine [EpiPen 2-Issa] 0.3 mg/0.3 mL auto-injector 0.3 mg IM ONCE Qty: 2 0RF Rx Instructions: as a single dose; may repeat once Adults Multivitamin 1 tab-cap PO DAILY epinephrine [EpiPen 2-Issa] 0.3 mg/0.3 mL auto-injector 0.3 ml IM Q5-15M PRN (Reason: anaphylaxis) Qty: 2 0RF Rx Instructions: do not exceed 3 doses per episode epinephrine [EpiPen 2-Issa] 0.3 mg/0.3 mL auto-injector 0.3 ml IM Q5-15M PRN (Reason: anaphylaxis) Qty: 2 0RF Rx Instructions: do not exceed 2 doses per episode Follow-up/Referrals: PHYSICIAN,FABRICATING MACHINE OPERATOR [Primary Care Provider] - Time of Disposition: 10:23
== END 2024-12-29 10:38 | disposition home or self-care (01) ==
DX: L25.9 Unspecified contact dermatitis, unspecified cause (principal); E78.5 Hyperlipidemia, unspecified; M10.9 Gout, unspecified
CPT/HCPCS: 96372; 99213; G0463; J2919

== ENCOUNTER 2025-02-14 16:25 | Emergency (ER) | payer OTHER, SELFPAY ==
[2025-02-14 16:38] VITALS: BP 145/93; PULSE 66; RESP 16; TEMP 36.8; O2SAT 100
--- NOTE | 2025-02-14 16:50 | ED.EXTPRO ---
HPI - Extremity Problem General Chief complaint: Extremity Problem,Nontraumatic Stated complaint: R FOOT/TOE PAIN Time Seen by Provider: 02/14/25 16:40 Source: patient Mode of arrival: ambulatory Limitations: no limitations History of Present Illness HPI Narrative: Osei is a 49-year-old male patient presenting to the clinic today with complaints right foot/great toe pain. History of gout. Takes allopurinol daily. He reports symptoms started yesterday with a a gout flare to the right great proximal toe. Area is red, swollen, and very painful to movement. He denies any known injury Related Data Home Medications ?Medication ?Instructions ?Recorded ?Confirmed ?Last Taken ?Type Adults Multivitamin 1 tab-cap PO DAILY 10/22/22 02/14/25 Unknown History allopurinol 100 mg tablet 100 mg PO DAILY 02/14/25 02/14/25 Unknown History Allergies Allergy/AdvReac Type Severity Reaction Status Date / Time No Known Allergies Allergy Verified 02/14/25 16:35 Review of Systems Review of Systems: Pertinent positives per HPI. Patient denies any fever, chills, rash, headache, visual changes, dizziness, cough, runny nose, sore throat, shortness of breath, chest pain, palpitations, nausea, vomiting, diarrhea, constipation, abdominal pain, or any urinary issues. [facility] Past Medical History Medical History Positive colorectal cancer screening using Cologuard test Genital warts LFT elevation Gout Hx of hyperlipidemia Family History Family History Unknown Hypertension Heart disease Colon cancer HLD (hyperlipidemia) Social History Social History Smoking status: Never smoker Alcohol intake: current Alcohol use details: on occasion Substance use: never Substance use type: does not use Lack of Transportation: No Lack of Food: Never True Current Housing: I Have Housing Concerned About Future Housing: No Difficulty Paying Gas/Electric Bills: No Difficulty Paying for Meds: No Currently Unemployed: No Education: High School Diploma/GED Difficulty w/ Childcare or Family Care: No Living arrangements: with family Occupation/Education: occupation 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 There is no relevant family history pertinent to the patient complaint. Exam Narrative: General: Well-developed, well nourished, in no apparent distress Head: Normocephalic, atraumatic. Cardio: Regular rate and rhythm, s1 and s2 normal, no murmur appreciated. Resp: Clear to auscultation bilaterally, no rhonchi, rales, wheezing or rubs. Musculoskeletal: No deformity, red, swollen, erythemic proximal right great toe, very tender to palpation over the right proximal great toe, limited range of motion due to pain, muscle strength strong and equal, peripheral pulse strong, no edema, no cyanosis, normal gait and station Course Course Emergency Course: Portions of this record may have been created with voice recognition software. Level of Care: Express Care Visit Vital Signs Vital signs: Vital Signs Temperature 36.8 C 02/14/25 16:38 Pulse Rate 66 02/14/25 16:38 Respiratory Rate 16 02/14/25 16:38 Blood Pressure 145/93 H 02/14/25 16:38 Pulse Oximetry 100 02/14/25 16:38 Temperature 36.8 C 02/14/25 16:38 Pulse Rate 66 02/14/25 16:38 Respiratory Rate 16 02/14/25 16:38 Blood Pressure 145/93 H 02/14/25 16:38 Pulse Oximetry 100 02/14/25 16:38 Vital signs reviewed MDM - Extremity (Nontraumatic) MDM Narrative Medical decision making narrative: At the time of visit patient is resting comfortably on the exam table. Patient appears to be nontoxic. complaints right foot/great toe pain. History of gout. Takes allopurinol daily. He reports symptoms started yesterday with a a gout flare to the right great proximal toe. Area is red, swollen, and very painful to movement. He denies any known injury. On exam patient has red, swollen, erythema proximal great toe with tenderness to palpation. Plan: I suspect patient has gout flare. Prescription for colchicine and prednisone was sent to the pharmacy. Supportive measures were discussed with the patient and they voiced understanding discharge instructions and agrees to treatment plan. Return precautions reviewed Differential Diagnosis Differential diagnosis: Likely gout, cellulitis and other (Arthritis) Discharge Plan Discharge Clinical Impression: Gout Qualifiers: Gout site: toe Encounter type: initial encounter Chronicity: acute Laterality: right Patient Disposition: Home Condition: Stable Instructions: Antibiotic Form, Low Purine Diet (ED), Gout (ED) Additional Instructions: Take colchicine as directed-this will cause abdominal discomfort/diarrhea Take prednisone as directed Rest, ice, and elevate May take Tylenol or ibuprofen additionally as needed for pain as per bottle directions Follow-up with your primary care doctor in 3-5 days if symptoms persist Patient Language: Angolan Prescriptions: New colchicine 0.6 mg tablet 0.6 mg PO DAILY 1 Days Qty: 3 0RF Rx Instructions: Take 2 tabs by mouth initially then take 1 tab by mouth 1 hour later for gout flare prednisone 10 mg tablet 10 mg PO DAILY Qty: 30 0RF Rx Instructions: 60mg po daily on day 1, 40mg po daily on days 2-4, 30mg po daily on days 5-6, 20mg po daily on days 7-8, 10mg po daily on days 9-10 No Action epinephrine [EpiPen 2-Issa] 0.3 mg/0.3 mL auto-injector 0.3 mg IM ONCE Qty: 2 0RF Rx Instructions: as a single dose; may repeat once allopurinol 100 mg tablet 100 mg PO DAILY Adults Multivitamin 1 tab-cap PO DAILY Follow-up/Referrals: Jace,YARITZA Tolbert [Primary Care Provider] Time of Disposition: 16:49 Quality NIHSS Nursing Documentation ED NIHSS nursing documentation: reviewed/agree
== END 2025-02-14 16:52 | disposition home or self-care (01) ==
PROVIDERS: Emergency Provider Nurse Practitioner Family; PCP Physician Assistant
DX: M10.9 Gout, unspecified (principal); E78.5 Hyperlipidemia, unspecified
CPT/HCPCS: 99213; G0463